=== PATIENT | male | born 1965 | race Caucasian/White ===

== ENCOUNTER 2021-07-29 08:13 | Outpatient (CLI) | payer BC, OTHER, SELFPAY ==
--- NOTE | ~2021-07-29 | XR_ITS ---
EXAMINATION: XR foot RT min 3V DATE: 07/29/2021 13:23 INDICATION: Right foot second digit ulcer. TECHNIQUE: 4 views of right foot were obtained. COMPARISON: None. FINDINGS: There is hyperextension of the metatarsophalangeal joints. No fracture. There are erosions of tuft of second distal phalanx, consistent with osteomyelitis. There is mild osteoarthritis of firs t metatarsophalangeal joint and many of the midfoot joints and interphalangeal joints. There are enth esophytes at the posterior and plantar aspects of calcaneal tuberosity. IMPRESSION: 1. Osteomyelitis involving tuft of second distal phalanx. Reviewed, dictated and finalized at location A.
--- NOTE | ~2021-07-29 | NM_ITS ---
EXAMINATION: NM bone 3 phase DATE: 07/29/2021 13:12 INDICATION: Osteomyelitis of right foot second digit. TECHNIQUE: 25.7 mCi Tc-99m HDP was administered intravenously. Scintigrams of the feet were obtained in angiographic, blood pool, and delayed phases. COMPARISON: Right foot radiographs 07/29/2021 FINDINGS: There is increased activity in right second distal phalanx in all phases correlating with t uft erosions on radiographs, consistent with osteomyelitis. There is increased activity centered at t he joints of the mid feet and some of the metatarsophalangeal joints and interphalangeal joints bilat erally on immediate static and delayed images, likely osteoarthritis. IMPRESSION: 1. Acute osteomyelitis involving second distal phalanx of right foot. Reviewed, dictated and finalized at location A.
== END 2021-07-29 08:14 | disposition home or self-care (01) ==
LOC: ANHIMG 08:26
PROVIDERS: PCP Internal Medicine; Visit Provider Podiatrist Foot & Ankle Surgery
DX: L97.513 Non-pressure chronic ulcer of other part of right foot with necrosis of muscle (principal); E11.621 Type 2 diabetes mellitus with foot ulcer; M86.171 Other acute osteomyelitis, right ankle and foot
CPT/HCPCS: 73630; 78315; A9561